=== PATIENT | male | born 1985 | race Caucasian/White ===

== ENCOUNTER 2023-11-13 19:47 | Inpatient (IN) | payer MEDICAID ==
[2023-11-13] MEDS: INFLUENZA VIRUS VACCINE QVS 2023-24 (6MO+)/PF 60 MCG/0.5 ML SYRINGE IM. ONE (23:45)
[2023-11-14 00:20] VITALS: BP 120/70; PULSE 90; RESP 17; TEMP 97.6; O2SAT 97
[2023-11-14 08:10] LABS: BASOPHILS % (AUTO) 0.5 % (0.0-2.0); EOSINOPHILS % (AUTO) 1.9 % (1.0-6.0); HEMATOCRIT 39.1 % (41-53); HEMOGLOBIN 13.6 g/dL (13.5-17.5); LYMPHOCYTES # (AUTO) 0.9 K/uL (1.0-4.8); LYMPHOCYTES % (AUTO) 15.8 % (22.0-44.0); MEAN CORPUSCULAR HGB CONC 34.9 G/dL (31.0-37.0); MEAN CORPUSCULAR VOLUME 95 fL (80-100); MONOCYTES # (AUTO) 0.7 K/uL (0.1-1.0); MONOCYTES % (AUTO) 11.8 % (2.0-9.0); NEUTROPHILS # (AUTO) 4.2 K/uL (1.8-7.7); PLATELET COUNT (AUTO) 172 K/uL (150-450); RED BLOOD CELL COUNT(AUTO) 4.14 MIL/uL (4.50-5.90); RED CELL DISTRIBUTION WIDTH 13.5 % (11.5-14.5)
[2023-11-14 08:17] LABS: HEMOGLOBIN A1C 4.7 % (3.8-5.6)
[2023-11-14 08:33] LABS: ALANINE AMINOTRANSFERASE 34 U/L (12-78); ALBUMIN 3.1 g/dL (3.4-5.0); ALKALINE PHOSPHATASE 76 U/L (46-116); ANION GAP 6 mmol/L (8-16); ASPARTATE AMINOTRANSFERASE 38 U/L (15-37); BILIRUBIN,TOTAL 0.5 mg/dL (0.1-1.0); CALCIUM, TOTAL 8.2 mg/dL (8.8-10.5); CARBON DIOXIDE 31 mmol/L (22-29); CHLORIDE 104 mmol/L (98-107); CHOL/HDL RATIO 2.6 (4.2-7.3); CHOLESTEROL 140 mg/dL (131-200); CREATININE 0.67 mg/dL (0.60-1.30); FREE T4 (FREE THYROXINE) 0.98 ng/dL (0.76-1.46); GLOMERULAR FILTR. RATE CALC > 60 mL/min (>60); GLUCOSE,RANDOM 80 mg/dL (70-110); HDL CHOLESTEROL 54 mg/dL (40-60); LDL CHOL (CALC.) 75 mg/dL (0-130); POTASSIUM 3.5 mmol/L (3.5-5.1); SODIUM SERUM 141 mmol/L (136-145); THYROID STIMULATING HORMONE 1.35 uIU/mL (0.36-3.74); TOTAL PROTEIN, SERUM 6.1 g/dL (6.4-8.2); TRIGLYCERIDES 57 mg/dL (15-150); UREA NITROGEN, BLOOD 10 mg/dL (7-18)
[2023-11-14 09:09] VITALS: BP 111/66; PULSE 78; RESP 17; TEMP 97.7; O2SAT 97
[2023-11-14] MEDS: ESCITALOPRAM OXALATE 10 MG TABLET PO SCH (10:56)
[2023-11-14] MEDS: LORazepam 2 MG TABLET PO PRN (14:19)
[2023-11-14 20:05] VITALS: BP 123/78; PULSE 83; RESP 18; TEMP 98.1; O2SAT 97
[2023-11-15 02:49] VITALS: BP 134/87; PULSE 91; RESP 18; TEMP 97.3; O2SAT 95
[2023-11-15] MEDS ORDERED: ACETAMINOPHEN 325 MG TABLET PO PRN (06:15)
[2023-11-15] MEDS ORDERED: CloNIDine HCL 0.1 MG TABLET PO PRN (06:15)
[2023-11-15] MEDS ORDERED: GuaiFENesin/D-METHORPHAN [SUGAR-FREE] 200-20MG/10 ML SYRUP UDCUP PO PRN (06:15)
[2023-11-15] MEDS ORDERED: NICOTINE 14 MG/24 HOUR PATCH TD PRN (06:15)
[2023-11-15] MEDS ORDERED: DOCUSATE SODIUM 100 MG CAPSULE PO PRN (06:15)
[2023-11-15] MEDS ORDERED: ONDANSETRON HCL 4 MG TABLET PO PRN (06:15)
[2023-11-15] MEDS ORDERED: IBUPROFEN 400 MG TABLET PO PRN (06:15)
[2023-11-15] MEDS ORDERED: ALBUTEROL SULFATE HFA 90 MCG/PUFF 8 GM INHALER IH PRN (06:15)
[2023-11-15] MEDS ORDERED: LOPERAMIDE HCL 2 MG CAPSULE PO PRN (06:15)
[2023-11-15 08:37] LABS: APPEARANCE,URINE HAZY (CLEAR); BILIRUBIN,URINE NEGATIVE (NEGATIVE); COLOR,URINE YELLOW (YELLOW); GLUCOSE, URINE (UA) NEGATIVE (NEGATIVE); KETONES,URINE NEGATIVE (NEGATIVE); LEUKOCYTE ESTERASE ,URINE NEGATIVE (NEGATIVE); NITRATE,URINE NEGATIVE (NEGATIVE); OCCULT BLOOD,URINE NEGATIVE (NEGATIVE); PH,URINE 7.5 (5.0-8.0); PH,URINE DRUG SCREEN 7.5 (5.0-8.0); PROTEIN,URINE TRACE mg/dL (NEGATIVE); SPECIFIC GRAVITIY, URINE 1.023 (1.003-1.030); UROBILINOGEN,URINE <=1.0 mg/dL (<=1.0)
[2023-11-15 08:46] LABS: ALCOHOL, URINE DRUG SCREEN NEGATIVE (NEGATIVE); AMPHET/METH SCREEN,URINE NEGATIVE (NEGATIVE); BARBITURATE SCREEN, URINE NEGATIVE (NEGATIVE); BENZODIAZEPINES SCREEN,URINE NEGATIVE (NEGATIVE); CANNABINOID SCREEN,URINE POSITIVE (NEGATIVE); COCAINE SCREEN,URINE NEGATIVE (NEGATIVE); METHADONE SCREEN, URINE NEGATIVE (NEGATIVE); OPIATE SCREEN,URINE NEGATIVE (NEGATIVE); PHENCYCLIDINE SCREEN,URINE NEGATIVE (NEGATIVE)
[2023-11-15 08:51] VITALS: BP 118/79; PULSE 97; RESP 19; TEMP 98; O2SAT 96
[2023-11-15] MEDS: MAG HYDROX/ALUMINUM HYD/SIMETH ES 30 ML SUSPENSION UDCUP PO PRN (16:15)
[2023-11-15 20:02] VITALS: BP 134/82; PULSE 104; RESP 20; TEMP 97.8; O2SAT 96
[2023-11-15] MEDS: ZOLPIDEM TARTRATE 10 MG TABLET PO PRN (22:46)
[2023-11-16 08:41] VITALS: BP 116/66; PULSE 73; RESP 17; TEMP 97.8; O2SAT 97
[2023-11-16 20:00] VITALS: BP 126/74; PULSE 75; RESP 18; TEMP 97; O2SAT 97
[2023-11-17 08:07] VITALS: BP 121/75; PULSE 85; RESP 17; TEMP 98; O2SAT 100
[2023-11-17 16:50] VITALS: BP 122/62; PULSE 76; RESP 17; TEMP 97.8; O2SAT 98
[2023-11-17 21:15] VITALS: BP 121/61; PULSE 78; RESP 21; TEMP 97.3; O2SAT 98
[2023-11-18 09:18] VITALS: BP 128/82; PULSE 84; RESP 16; TEMP 97; O2SAT 97
[2023-11-18] MEDS: HydrOXYzine HCL 25 MG TABLET PO PRN (18:19)
[2023-11-18 20:10] VITALS: BP 129/72; PULSE 80; RESP 18; TEMP 98.1; O2SAT 96
[2023-11-19 08:27] VITALS: BP 130/76; PULSE 74; RESP 18; TEMP 97.6; O2SAT 98
[2023-11-19] MEDS: HydrOXYzine HCL 25 MG TABLET PO PRN (10:43)
[2023-11-19 20:15] VITALS: BP 128/81; PULSE 77; RESP 18; TEMP 97.7
[2023-11-20 08:09] VITALS: BP 120/67; PULSE 67; RESP 17; TEMP 98.4; O2SAT 98
[2023-11-20] MEDS: MAGNESIUM HYDROXIDE SUSPENSION 30 ML UDCUP PO PRN (14:05)
[2023-11-20 21:23] VITALS: BP 107/60; PULSE 66; RESP 18; TEMP 98; O2SAT 97
[2023-11-21 08:59] VITALS: BP 120/71; PULSE 66; RESP 17; TEMP 97.6; O2SAT 100
[2023-11-21] MEDS: HALOPERIDOL 5 MG TABLET PO PRN (15:14)
[2023-11-21 20:59] VITALS: BP 138/76; PULSE 70; RESP 19; TEMP 98.4; O2SAT 99
[2023-11-22 08:13] VITALS: BP 126/83; PULSE 68; RESP 18; TEMP 98.3; O2SAT 99
[2023-11-22 20:34] VITALS: BP 128/71; PULSE 81; RESP 17; TEMP 97.8; O2SAT 97
[2023-11-23 08:39] VITALS: BP 136/80; PULSE 74; RESP 18; TEMP 98.2; O2SAT 99
[2023-11-23 21:57] VITALS: BP 112/62; PULSE 85; RESP 18; TEMP 97.5; O2SAT 99
[2023-11-24 10:06] VITALS: BP 104/65; PULSE 95; RESP 18; TEMP 97.6; O2SAT 98
[2023-11-24 20:19] VITALS: BP 108/68; PULSE 81; RESP 18; TEMP 97.1; O2SAT 99
[2023-11-25 13:53] VITALS: BP 107/75; PULSE 81; RESP 18; TEMP 98.3; O2SAT 99
[2023-11-25 20:32] VITALS: BP 115/62; PULSE 68; RESP 18; TEMP 97.8; O2SAT 96
[2023-11-26 11:24] VITALS: BP 101/60; PULSE 70; RESP 17; TEMP 96.9; O2SAT 97
[2023-11-26] MEDS: OXcarbazepine 300 MG TABLET PO SCH (17:09)
[2023-11-26 21:41] VITALS: BP 139/76; PULSE 84; RESP 16; TEMP 97.8; O2SAT 98
[2023-11-27 10:20] VITALS: BP 115/68; PULSE 82; RESP 17; TEMP 98; O2SAT 98
[2023-11-27 21:52] VITALS: RESP 18; TEMP 97.9
[2023-11-28 08:10] VITALS: BP 123/73; PULSE 83; RESP 18; TEMP 97.6; O2SAT 73
[2023-11-28 22:09] VITALS: BP 114/60; PULSE 63; RESP 16; TEMP 98.2; O2SAT 97
[2023-11-29] MEDS: PETROLATUM,WHITE 28 GM JELLY TP PRN (21:25)
[2023-11-30 00:28] VITALS: BP 128/92; PULSE 98; RESP 16; TEMP 97.6; O2SAT 96
[2023-11-30 10:06] VITALS: BP 114/76; PULSE 77; RESP 17; TEMP 97.6; O2SAT 99
[2023-11-30 20:24] VITALS: BP 120/76; PULSE 96; RESP 17; TEMP 98.1; O2SAT 98
[2023-12-01 08:05] VITALS: BP 126/83; PULSE 95; RESP 16; TEMP 98; O2SAT 95
[2023-12-01 20:30] VITALS: BP 127/52; PULSE 78; RESP 16; TEMP 97.6; O2SAT 98
[2023-12-02] MEDS ORDERED: OXCA300T70 PO (02:47)
[2023-12-02] MEDS ORDERED: ESCI-8 PO ×2 (02:47→13:30)
[2023-12-02] MEDS ORDERED: OXCA300T28 PO (13:30)
== END 2023-12-02 08:45 | disposition home or self-care (01) | DRG 753 ==
LOC: B2S 21:44 → B3A 11-23 14:38
PROVIDERS: ADMIT Psychiatry & Neurology Child & Adolescent Psychiatry; ATTEND Psychiatry & Neurology Child & Adolescent Psychiatry
PROC: GZHZZZZ Group Psychotherapy (ICD-10-PCS; principal; 2023-11-23)
DX: F31.4 Bipolar disorder, current episode depressed, severe, without psychotic features (principal); F10.10 Alcohol abuse, uncomplicated; F41.9 Anxiety disorder, unspecified; G47.00 Insomnia, unspecified; F11.10 Opioid abuse, uncomplicated; K59.00 Constipation, unspecified; Z59.00 Homelessness unspecified; Z88.8 Allergy status to other drugs, medicaments and biological substances
CPT/HCPCS: 80053; 80061; 80307; 81003; 83036; 84439; 84443; 85025